=== PATIENT | female | born 1960 | race Caucasian/White ===

== ENCOUNTER 2023-04-22 20:07 | Inpatient (IN) | payer SELFPAY ==
[2023-04-22 20:47] LABS: #Basophils 0.1 thou/uL (0.0-0.2); #Eosinphils 0.3 thou/uL (0.0-0.7); #Monocytes 0.6 thou/uL (0.11-0.59); #Neutrophils 12.2 thou/uL (1.40-6.50); %Basophils 0.4 % (0.0-1.0); %Eosinophils 2.1 % (0.0-10.0); %Lymphocytes 5.7 % (21.0-51.0); %Monocytes 4.2 % (0.0-10.0); %Neutrophils 87.2 % (42.0-75.0); Hematocrit 22.3 % (36.0-47.0); Mean Corpuscular HGB CONC 26.9 g/dL (32.0-36.0); Mean Corpuscular Hemoglobin 19.2 pg (27.0-31.0); Mean Corpuscular Volume 71.2 fl (78.0-98.0); Mean Platelet Volume 12.2 fL (7.4-10.4); Platelet Count 365 10x3/uL (130-400); RBC Distribution Width 20.6 % (11.5-14.5); Red Blood Cell (RBC) Count 3.13 mill/uL (4.20-5.40)
[2023-04-22 21:00] LABS: PTT 23.7 sec (22.9-36.1)
[2023-04-22 21:07] LABS: INR-International Normal Ratio 0.9; Prothrombin Time 12.8 sec (12.0-14.7)
[2023-04-22 21:14] LABS: Troponin I 0.025 ng/mL (< 0.028)
[2023-04-22 21:17] LABS: ALT (SGPT) 16 U/L (8-55); AST (SGOT) 10 U/L (5-34); Alkaline Phosphatase 89 U/L (40-110); Anion Gap 14 mmol/L (10-20); BUN (Urea Nitrogen) 38 mg/dL (9.8-20.1); Bilirubin, Total 0.3 mg/dL (0.2-1.2); Calc. Creatinine Clearance 0 mL/min (70-130); Carbon Dioxide 27 mmol/L (23-31); Chloride 105 mmol/L (98-107); Estimated GFR 29; Glucose 188 mg/dL (80-115); Potassium 4.3 mmol/L (3.5-5.1); Sodium 142 mmol/L (136-145)
[2023-04-22 21:19] LABS: Anisocytosis MODERATE=16-30 cells HPF (0-5); CellaVision Operator ID lab.sh2; Hypochromia SLIGHT = 6-15 cells HPF (0-5); Microcytosis SLIGHT = 6-15 cells HPF (0-5); Ovalocytes MODERATE= 6-15 cells HPF (0-1); Platelet Adequacy Comment Platelets Normal; Polychromasia MODERATE = 3-4 cells HPF (0-2); Tear Drops SLIGHT = 2-5 cells HPF (0-1)
[2023-04-22] MEDS ORDERED: Ondansetron PF 4 MG/2 ML Vial IVP PRN (22:00)
[2023-04-22] MEDS ORDERED: Acetaminophen 325 MG TAB PO PRN (22:00)
[2023-04-22] MEDS ORDERED: Ondansetron ODT 4 MG TAB SL PRN (22:00)
[2023-04-22] MEDS ORDERED: Furosemide 40 MG/4 ML VIAL ONE (22:01)
[2023-04-22] MEDS ORDERED: Acetaminophen 650 MG Suppository PR PRN (23:34)
[2023-04-22] MEDS ORDERED: Electrolyte Replacement Protocol 1 EACH FS SCH (23:45)
[2023-04-22] MEDS ORDERED: Pantoprazole 40 MG VIAL IVP SCH (23:59)
[2023-04-23 00:28] VITALS: BMI 44.1
[2023-04-23 00:37] LABS: Iron 24 ug/dL (50-170); Iron Binding Capacity, Total 499 mcg/dL (265-497); Magnesium 2.3 mg/dL (1.6-2.6)
[2023-04-23] MEDS ORDERED: HumaLOG 300 UNITS/3 ML VIAL SC PRN (01:05)
[2023-04-23] MEDS ORDERED: Dextrose 5% in Water 1,000 ML IV PRN (01:05)
[2023-04-23] MEDS ORDERED: Glucagon 1 MG/ML KIT IM PRN (01:05)
[2023-04-23] MEDS ORDERED: Dextrose 50% Abboject 50 ML SYRINGE SLOW IVP PRN (01:05)
[2023-04-23] MEDS ORDERED: hydrALAZINE 20 MG/ML VIAL SLOW IVP PRN (01:08)
[2023-04-23] MEDS ORDERED: Ipratropium/Albuterol 3 ML NEB NEB PRN (01:16)
[2023-04-23] MEDS ORDERED: hydrALAZINE 25 MG TAB PO SCH ×2 (01:30→09:30)
[2023-04-23] MEDS: Ipratropium/Albuterol 3 ML NEB NEB SCH ×5 (01:34→19:54)
[2023-04-23] MEDS ORDERED: Carvedilol 3.125 MG TAB PO SCH (01:45)
[2023-04-23] MEDS: Carvedilol 3.125 MG TAB PO SCH ×3 (02:12→20:09)
[2023-04-23 02:15] LABS: Anion Gap 15 mmol/L (10-20); BUN (Urea Nitrogen) 36 mg/dL (9.8-20.1); Calc. Creatinine Clearance 66 mL/min (70-130); Carbon Dioxide 28 mmol/L (23-31); Chloride 105 mmol/L (98-107); Estimated GFR 34; Glucose 104 mg/dL (80-115); Magnesium 2.2 mg/dL (1.6-2.6); Potassium 3.9 mmol/L (3.5-5.1); Sodium 144 mmol/L (136-145)
[2023-04-23 02:18] LABS: Troponin I 0.142 ng/mL (< 0.028)
[2023-04-23 02:54] LABS: Bacteria/HPF 4+ HPF (None Seen); Bilirubin Negative (Negative); Blood, Urine Trace (Negative); Clarity Clear (Clear); Glucose, Urine (Dipstick) Normal (Negative); Ketone, Urine Negative (Negative); Leukocyte 500 Leu/uL (Negative); Nitrite 1+ (Negative); Protein, Urine (Dipstick) 70 mg/dL (Neg-Trace); Squamous Epithelial 0-3 HPF (0-3); Urobilinogen Normal mg/dL (Less than 2); WBC/HPF 21-50 HPF (0-3)
[2023-04-23 06:26] LABS: #Basophils 0.1 thou/uL (0.0-0.2); #Eosinphils 0.3 thou/uL (0.0-0.7); #Monocytes 0.6 thou/uL (0.11-0.59); #Neutrophils 8.8 thou/uL (1.40-6.50); %Basophils 0.5 % (0.0-1.0); %Eosinophils 2.7 % (0.0-10.0); %Lymphocytes 11.6 % (21.0-51.0); %Monocytes 5.5 % (0.0-10.0); %Neutrophils 79.3 % (42.0-75.0); Hematocrit 23.1 % (36.0-47.0); Hemoglobin 6.5 g/dL (12.0-16.0); Mean Corpuscular HGB CONC 28.1 g/dL (32.0-36.0); Mean Corpuscular Hemoglobin 20.8 pg (27.0-31.0); Mean Platelet Volume 11.9 fL (7.4-10.4); Platelet Count 315 10x3/uL (130-400); RBC Distribution Width 22.3 % (11.5-14.5); Red Blood Cell (RBC) Count 3.13 mill/uL (4.20-5.40)
[2023-04-23 06:28] LABS: Mean Corpuscular Volume 73.8 fl (78.0-98.0)
[2023-04-23 06:51] LABS: Anion Gap 13 mmol/L (10-20); BUN (Urea Nitrogen) 35 mg/dL (9.8-20.1); Calc. Creatinine Clearance 65 mL/min (70-130); Calcium 8.9 mg/dL (7.8-10.44); Carbon Dioxide 29 mmol/L (23-31); Chloride 106 mmol/L (98-107); Estimated GFR 34; Glucose 98 mg/dL (80-115); Magnesium 2.2 mg/dL (1.6-2.6); Potassium 3.8 mmol/L (3.5-5.1); Sodium 144 mmol/L (136-145)
[2023-04-23] MEDS ORDERED: Furosemide 40 MG/4 ML VIAL SLOW IVP SCH (09:00)
[2023-04-23] MEDS: Pantoprazole 40 MG VIAL IVP SCH (09:01)
[2023-04-23 10:18] LABS: Hematocrit 23.6 % (36.0-47.0); Hemoglobin 6.5 g/dL (12.0-16.0)
[2023-04-23] MEDS ORDERED: busPIRone HCl 10 MG TAB PO SCH (13:15)
[2023-04-23] MEDS: Iron, Sodium Ferric Gluconate 250 MG in Sodium Chloride 0.9% 250 ML 250 ML IVPB SCH (13:27)
[2023-04-23] MEDS: hydrALAZINE 25 MG TAB PO SCH ×2 (15:45→20:09)
[2023-04-23] MEDS: Furosemide 40 MG/4 ML VIAL SLOW IVP SCH (15:46)
[2023-04-23 16:00] LABS: Hemoglobin 7.5 g/dL (12.0-16.0)
[2023-04-23] MEDS ORDERED: Ipratropium Bromide 2.5 ml Neb NEB SCH (19:00)
[2023-04-23] MEDS: Mometasone 200 MCG/Formoterol 5 MCG 120 PUFF INHALER INH SCH (19:55)
[2023-04-23] MEDS: Atorvastatin Calcium 20 MG TAB PO SCH (20:09)
[2023-04-23] MEDS: Montelukast Sodium 10 mg Tablet PO SCH (20:09)
[2023-04-23] MEDS: busPIRone HCl 10 MG TAB PO SCH (20:14)
[2023-04-23] MEDS ORDERED: ALPRAZolam 0.5 MG TAB PO SCH (21:00)
[2023-04-23 21:59] LABS: Hematocrit 27.7 % (36.0-47.0); Hemoglobin 7.9 g/dL (12.0-16.0)
[2023-04-24] MEDS: Furosemide 40 MG/4 ML VIAL SLOW IVP SCH ×2 (05:23→13:57)
[2023-04-24] MEDS: Mometasone 200 MCG/Formoterol 5 MCG 120 PUFF INHALER INH SCH ×2 (06:44→18:53)
[2023-04-24] MEDS: Ipratropium/Albuterol 3 ML NEB NEB SCH ×3 (06:45→18:50)
[2023-04-24] MEDS ORDERED: Ipratropium Bromide 2.5 ml Neb NEB SCH (07:00)
[2023-04-24] MEDS: Pantoprazole 40 MG VIAL IVP SCH (08:28)
[2023-04-24] MEDS: hydrALAZINE 25 MG TAB PO SCH ×3 (08:28→20:27)
[2023-04-24] MEDS: Carvedilol 3.125 MG TAB PO SCH ×2 (08:28→20:29)
[2023-04-24] MEDS: busPIRone HCl 10 MG TAB PO SCH ×2 (08:29→20:33)
[2023-04-24] MEDS: Iron, Sodium Ferric Gluconate 250 MG in Sodium Chloride 0.9% 250 ML 250 ML IVPB SCH (10:59)
[2023-04-24] MEDS ORDERED: GoLYTELY 4,000 ml Bottle PO SCH (17:00)
[2023-04-24] MEDS: Atorvastatin Calcium 20 MG TAB PO SCH (20:28)
[2023-04-24] MEDS: Montelukast Sodium 10 mg Tablet PO SCH (20:29)
[2023-04-25] MEDS: Furosemide 40 MG/4 ML VIAL SLOW IVP SCH ×2 (06:54→15:20)
[2023-04-25] MEDS: Mometasone 200 MCG/Formoterol 5 MCG 120 PUFF INHALER INH SCH ×2 (06:58→18:47)
[2023-04-25] MEDS: Ipratropium/Albuterol 3 ML NEB NEB SCH ×3 (06:59→18:36)
[2023-04-25 08:03] LABS: #Basophils 0.1 thou/uL (0.0-0.2); #Eosinphils 0.5 thou/uL (0.0-0.7); #Monocytes 0.7 thou/uL (0.11-0.59); %Basophils 0.5 % (0.0-1.0); %Eosinophils 4.1 % (0.0-10.0); %Lymphocytes 10.6 % (21.0-51.0); %Monocytes 6.4 % (0.0-10.0); %Neutrophils 77.5 % (42.0-75.0); Hematocrit 26.7 % (36.0-47.0); Hemoglobin 7.5 g/dL (12.0-16.0); Mean Corpuscular HGB CONC 28.1 g/dL (32.0-36.0); Mean Corpuscular Hemoglobin 20.6 pg (27.0-31.0); Mean Corpuscular Volume 73.4 fl (78.0-98.0); Mean Platelet Volume 11.5 fL (7.4-10.4); Platelet Count 328 10x3/uL (130-400); RBC Distribution Width 22.3 % (11.5-14.5); Red Blood Cell (RBC) Count 3.64 mill/uL (4.20-5.40); White Blood Cell (WBC) Count 11.7 10x3/uL (4.8-10.8)
[2023-04-25 08:28] LABS: Anion Gap 15 mmol/L (10-20); BUN (Urea Nitrogen) 23 mg/dL (9.8-20.1); Calc. Creatinine Clearance 70 mL/min (70-130); Calcium 8.9 mg/dL (7.8-10.44); Carbon Dioxide 32 mmol/L (23-31); Chloride 98 mmol/L (98-107); Estimated GFR 37; Glucose 127 mg/dL (80-115); Potassium 3.4 mmol/L (3.5-5.1); Sodium 142 mmol/L (136-145)
[2023-04-25] MEDS ORDERED: Potassium Chloride 20 MEQ TAB PO SCH ×2 (09:00→15:00)
[2023-04-25] MEDS: busPIRone HCl 10 MG TAB PO SCH ×2 (09:09→20:15)
[2023-04-25] MEDS: Carvedilol 3.125 MG TAB PO SCH ×2 (09:09→20:15)
[2023-04-25] MEDS: hydrALAZINE 25 MG TAB PO SCH ×3 (09:09→20:14)
[2023-04-25 09:20] LABS: CellaVision Operator ID LAB.GE; Elliptocytes SLIGHT = 2-5 cells HPF (0-1); Hypochromia SLIGHT = 6-15 cells HPF (0-5); Microcytosis MODERATE=15-30 cells HPF (0-5); Ovalocytes SLIGHT = 2-5 cells HPF (0-1); Platelet Adequacy Comment Platelets Normal; Polychromasia MODERATE = 3-4 cells HPF (0-2)
[2023-04-25] MEDS ORDERED: Lidocaine 1% PF 5 ML VIAL ONE ×2 (10:13→11:05)
[2023-04-25] MEDS ORDERED: PROPOFOL 20 ML ONE (10:16)
[2023-04-25] MEDS ORDERED: Ketamine In 0.9 % NaCl 50 MG/5 ML SYRINGE ONE ×2 (11:02→11:18)
[2023-04-25] MEDS ORDERED: Midazolam HCl 2 mg/2 ml Vial ONE ×2 (11:04→11:35)
[2023-04-25] MEDS ORDERED: PROPOFOL 200 MG/20 ML VIAL ONE (11:05)
[2023-04-25] MEDS ORDERED: Glycopyrrolate 0.2 MG/ML 5 ML SYRINGE ONE ×2 (11:05→11:06)
[2023-04-25] MEDS: Pantoprazole 40 MG VIAL IVP SCH (14:44)
[2023-04-25] MEDS: Iron, Sodium Ferric Gluconate 250 MG in Sodium Chloride 0.9% 250 ML 250 ML IVPB SCH (16:12)
[2023-04-25] MEDS: GoLYTELY 4,000 ml Bottle PO SCH (17:39)
[2023-04-25] MEDS: Atorvastatin Calcium 20 MG TAB PO SCH (20:14)
[2023-04-25] MEDS: Montelukast Sodium 10 mg Tablet PO SCH (20:14)
[2023-04-26] MEDS: GoLYTELY 4,000 ml Bottle PO SCH (02:35)
[2023-04-26 04:24] LABS: #Eosinphils 0.5 thou/uL (0.0-0.7); #Monocytes 0.7 thou/uL (0.11-0.59); #Neutrophils 9.3 thou/uL (1.40-6.50); %Basophils 0.3 % (0.0-1.0); %Eosinophils 4.3 % (0.0-10.0); %Lymphocytes 10.9 % (21.0-51.0); %Monocytes 5.9 % (0.0-10.0); %Neutrophils 77.8 % (42.0-75.0); Hematocrit 26.9 % (36.0-47.0); Hemoglobin 7.6 g/dL (12.0-16.0); Mean Corpuscular HGB CONC 28.3 g/dL (32.0-36.0); Mean Corpuscular Hemoglobin 21.2 pg (27.0-31.0); Mean Corpuscular Volume 74.9 fl (78.0-98.0); Mean Platelet Volume 12.1 fL (7.4-10.4); Platelet Count 345 10x3/uL (130-400); RBC Distribution Width 23.4 % (11.5-14.5); Red Blood Cell (RBC) Count 3.59 mill/uL (4.20-5.40)
[2023-04-26 04:50] LABS: Anion Gap 14 mmol/L (10-20); BUN (Urea Nitrogen) 19 mg/dL (9.8-20.1); Calc. Creatinine Clearance 75 mL/min (70-130); Calcium 8.8 mg/dL (7.8-10.44); Carbon Dioxide 32 mmol/L (23-31); Chloride 95 mmol/L (98-107); Estimated GFR 41; Glucose 121 mg/dL (80-115); Potassium 3.4 mmol/L (3.5-5.1); Sodium 138 mmol/L (136-145)
[2023-04-26] MEDS: Furosemide 40 MG/4 ML VIAL SLOW IVP SCH ×2 (05:38→13:44)
[2023-04-26] MEDS: Mometasone 200 MCG/Formoterol 5 MCG 120 PUFF INHALER INH SCH ×2 (07:21→18:22)
[2023-04-26] MEDS: Ipratropium/Albuterol 3 ML NEB NEB SCH ×3 (07:21→18:22)
[2023-04-26] MEDS ORDERED: Potassium Chloride 20 MEQ TAB PO SCH (08:00)
[2023-04-26] MEDS ORDERED: PROPOFOL 40 ML ONE (09:06)
[2023-04-26] MEDS ORDERED: Lidocaine 1% PF 5 ML VIAL ONE ×2 (09:06→09:11)
[2023-04-26] MEDS ORDERED: Glycopyrrolate 0.2 MG/ML 5 ML SYRINGE ONE ×2 (09:11→09:26)
[2023-04-26] MEDS ORDERED: PROPOFOL 200 MG/20 ML VIAL ONE (09:11)
[2023-04-26] MEDS ORDERED: ePHEDrine Sulfate 50 MG/10 ML VIAL ONE (09:24)
[2023-04-26] MEDS: Carvedilol 6.25 MG TAB PO SCH ×2 (10:43→17:25)
[2023-04-26] MEDS: busPIRone HCl 10 MG TAB PO SCH ×2 (10:44→21:04)
[2023-04-26] MEDS: Lisinopril 5 MG TAB PO SCH ×2 (10:44→21:04)
[2023-04-26] MEDS: hydrALAZINE 25 MG TAB PO SCH ×3 (10:44→21:04)
[2023-04-26] MEDS: Iron, Sodium Ferric Gluconate 250 MG in Sodium Chloride 0.9% 250 ML 250 ML IVPB SCH (11:44)
[2023-04-26] MEDS: Atorvastatin Calcium 20 MG TAB PO SCH (21:04)
[2023-04-26] MEDS: Montelukast Sodium 10 mg Tablet PO SCH (21:04)
[2023-04-27] MEDS: ALPRAZolam 0.5 MG TAB PO PRN (00:13)
[2023-04-27] MEDS ORDERED: predniSONE 20 MG TAB PO SCH (01:30)
[2023-04-27] MEDS: Furosemide 40 MG/4 ML VIAL SLOW IVP SCH (06:41)
[2023-04-27] MEDS: Ipratropium/Albuterol 3 ML NEB NEB SCH ×3 (07:07→18:26)
[2023-04-27] MEDS: Mometasone 200 MCG/Formoterol 5 MCG 120 PUFF INHALER INH SCH ×2 (07:08→18:33)
[2023-04-27] MEDS: Lisinopril 5 MG TAB PO SCH ×2 (09:24→22:29)
[2023-04-27] MEDS: Carvedilol 6.25 MG TAB PO SCH ×2 (09:24→17:23)
[2023-04-27] MEDS: busPIRone HCl 10 MG TAB PO SCH ×2 (09:25→22:30)
[2023-04-27] MEDS: hydrALAZINE 25 MG TAB PO SCH ×3 (09:25→22:29)
[2023-04-27] MEDS: predniSONE 20 MG TAB PO SCH ×2 (09:30→14:08)
[2023-04-27] MEDS ORDERED: Potassium Chloride 20 MEQ TAB PO SCH (11:45)
[2023-04-27] MEDS: HumaLOG 300 UNITS/3 ML VIAL SC PRN ×2 (11:47→17:44)
[2023-04-27] MEDS ORDERED: diphenhydrAMINE 25 MG CAP PO SCH (14:00)
[2023-04-27] MEDS: Furosemide 40 MG TAB PO SCH (14:01)
[2023-04-27] MEDS: Montelukast Sodium 10 mg Tablet PO SCH (22:29)
[2023-04-27] MEDS: Atorvastatin Calcium 20 MG TAB PO SCH (22:30)
[2023-04-27] MEDS: Insulin Glargine 30 UNITS/0.3 ML VIAL SC SCH (22:30)
[2023-04-28] MEDS: ALPRAZolam 0.5 MG TAB PO PRN (00:52)
[2023-04-28] MEDS: HumaLOG 300 UNITS/3 ML VIAL SC PRN (05:58)
[2023-04-28] MEDS: Ipratropium/Albuterol 3 ML NEB NEB SCH ×2 (06:52→13:33)
[2023-04-28] MEDS: Mometasone 200 MCG/Formoterol 5 MCG 120 PUFF INHALER INH SCH (06:53)
[2023-04-28 08:16] VITALS: TEMP 97.5
[2023-04-28] MEDS: Lisinopril 5 MG TAB PO SCH (09:22)
[2023-04-28] MEDS: busPIRone HCl 10 MG TAB PO SCH (09:22)
[2023-04-28] MEDS: Carvedilol 6.25 MG TAB PO SCH ×2 (09:23→17:28)
[2023-04-28] MEDS: hydrALAZINE 25 MG TAB PO SCH ×2 (09:23→15:49)
[2023-04-28] MEDS: Furosemide 40 MG TAB PO SCH ×2 (09:23→15:48)
[2023-04-28] MEDS: Insulin Glargine 30 UNITS/0.3 ML VIAL SC SCH (09:24)
[2023-04-28] MEDS ORDERED: Electrolyte Replacement Protocol FS PRN (13:00)
[2023-04-28 15:24] VITALS: BP 187/75
== END 2023-04-28 19:00 | disposition home or self-care (01) | DRG 811 ==
LOC: ERS 20:07 → T4-B 21:40 → 2NO 04-23 02:07
PROVIDERS: ADMIT Student in an Organized Health Care Education/Training Program; ATTEND Internal Medicine
PROC: 30233N1 Transfusion of Nonautologous Red Blood Cells into Peripheral Vein, Percutaneous Approach (ICD-10-PCS; 2023-04-22)
PROC: 0DB98ZX Excision of Duodenum, Via Natural or Artificial Opening Endoscopic, Diagnostic (ICD-10-PCS; principal; 2023-04-25)
PROC: 0DJD8ZZ Inspection of Lower Intestinal Tract, Via Natural or Artificial Opening Endoscopic (ICD-10-PCS; 2023-04-25)
PROC: 0DJD8ZZ Inspection of Lower Intestinal Tract, Via Natural or Artificial Opening Endoscopic (ICD-10-PCS; 2023-04-26)
DX: D50.9 Iron deficiency anemia, unspecified (principal); I50.33 Acute on chronic diastolic (congestive) heart failure; J96.21 Acute and chronic respiratory failure with hypoxia; I13.0 Hypertensive heart and chronic kidney disease with heart failure and stage 1 through stage 4 chronic kidney disease, or unspecified chronic kidney disease; N17.9 Acute kidney failure, unspecified; R65.10 Systemic inflammatory response syndrome (SIRS) of non-infectious origin without acute organ dysfunction; Z68.41 Body mass index [BMI] 40.0-44.9, adult; E11.22 Type 2 diabetes mellitus with diabetic chronic kidney disease; N18.30 Chronic kidney disease, stage 3 unspecified; K64.4 Residual hemorrhoidal skin tags; K64.9 Unspecified hemorrhoids; J44.9 Chronic obstructive pulmonary disease, unspecified; K22.70 Barrett's esophagus without dysplasia; E78.5 Hyperlipidemia, unspecified; E66.01 Morbid (severe) obesity due to excess calories; Z87.891 Personal history of nicotine dependence; Z79.899 Other long term (current) drug therapy; Z99.81 Dependence on supplemental oxygen; Z79.4 Long term (current) use of insulin; Z88.5 Allergy status to narcotic agent; Z88.8 Allergy status to other drugs, medicaments and biological substances; Z88.6 Allergy status to analgesic agent; Z91.041 Radiographic dye allergy status; Z91.040 Latex allergy status
CPT/HCPCS: 36415; 36416; 36430; 71045; 71260; 74177; 80048; 80053; 81001; 82728; 83540; 83550; 83735; 83880; 84443; 84484; 85025; 85610; 85730; 86850; 86900; 86901; 88305; 93005; 93306; 93798; 94640; 94664; 96374; C9113; J1815; J1940; J2250; J2704; J2916; J3490; J7050; J7512; J7620; P9016

== ENCOUNTER 2023-05-04 09:42 | Inpatient (IN) | payer MEDICARE, SELFPAY ==
[2023-05-04] MEDS ORDERED: Ipratropium/Albuterol 3 ML NEB ONE (10:01)
[2023-05-04 10:15] LABS: #Basophils 0.1 thou/uL (0.0-0.2); #Eosinphils 0.2 thou/uL (0.0-0.7); #Monocytes 0.8 thou/uL (0.11-0.59); #Neutrophils 12.1 thou/uL (1.40-6.50); %Basophils 0.4 % (0.0-1.0); %Eosinophils 1.1 % (0.0-10.0); %Monocytes 5.9 % (0.0-10.0); %Neutrophils 86.7 % (42.0-75.0); Hematocrit 28.8 % (36.0-47.0); Hemoglobin 7.9 g/dL (12.0-16.0); Mean Corpuscular HGB CONC 27.4 g/dL (32.0-36.0); Mean Corpuscular Hemoglobin 21.6 pg (27.0-31.0); Mean Corpuscular Volume 78.7 fl (78.0-98.0); Mean Platelet Volume 12.4 fL (7.4-10.4); Platelet Count 410 10x3/uL (130-400); RBC Distribution Width 26.6 % (11.5-14.5); Red Blood Cell (RBC) Count 3.66 mill/uL (4.20-5.40)
[2023-05-04 10:37] LABS: ALT (SGPT) 14 U/L (8-55); AST (SGOT) 10 U/L (5-34); Albumin 3.5 g/dL (3.4-4.8); Alkaline Phosphatase 80 U/L (40-110); Anion Gap 15 mmol/L (10-20); BUN (Urea Nitrogen) 29 mg/dL (9.8-20.1); Bilirubin, Total 0.4 mg/dL (0.2-1.2); Calc. Creatinine Clearance 0 mL/min (70-130); Carbon Dioxide 31 mmol/L (23-31); Chloride 98 mmol/L (98-107); Estimated GFR 39; Globulin 3.2 g/dL (2.4-3.5); Glucose 121 mg/dL (80-115); Magnesium 2.2 mg/dL (1.6-2.6); Potassium 3.6 mmol/L (3.5-5.1); Protein, Total 6.7 g/dL (5.8-8.1); Sodium 140 mmol/L (136-145)
[2023-05-04 10:40] LABS: Troponin I 0.032 ng/mL (< 0.028)
[2023-05-04 10:51] LABS: Bacteria/HPF 2+ HPF (None Seen); Bilirubin Negative (Negative); Blood, Urine 1+ (Negative); CAUTI Indications for Culture Dysuria,urgency,freq; Clarity Turbid (Clear); Glucose, Urine (Dipstick) Normal (Negative); Ketone, Urine Negative (Negative); Leukocyte 500 Leu/uL (Negative); Nitrite Negative (Negative); Protein, Urine (Dipstick) 300 mg/dL (Neg-Trace); RBC/HPF 21-50 HPF (0-3); Specific Gravity, Urine 1.011 (1.002-1.036); Squamous Epithelial 0-3 HPF (0-3); Urobilinogen Normal mg/dL (Less than 2); WBC/HPF Greater than 50 HPF (0-3)
[2023-05-04 10:54] LABS: Urine Culture Reflex Yes Yes
[2023-05-04] MEDS ORDERED: Magnesium 2 GM/50 ML BAG (IN WATER) ONE (11:17)
[2023-05-04] MEDS ORDERED: cefTRIAXone (ROCEPHIN) 2 GM VIAL ONE (11:17)
[2023-05-04] MEDS ORDERED: Sodium Chloride 0.9% 100 ML ONE (11:17)
[2023-05-04 11:18] LABS: CellaVision Operator ID LAB.NR; Elliptocytes SLIGHT = 2-5 cells HPF (0-1); Hypochromia MODERATE=16-30 cells HPF (0-5); Macrocytosis SLIGHT = 6-15 cells HPF (0-5); Microcytosis SLIGHT = 6-15 cells HPF (0-5); Platelet Adequacy Comment Platelets Increased; Polychromasia SLIGHT = 2-3 cells HPF (0-2)
[2023-05-04 12:48] LABS: Actual Bicarbonate (HCO3v) 30.8 mEq/L (22-28); Analyzer IN Cardio ER; Base Excess 2.7 mEq/L (-2.0 to +3.0); Calcium, Ionized (venous) 1.09 mmol/L (1.16-1.32); Chloride (VBG) 100 mmol/L (98-106); Hematocrit-VBG 24 % (36.0-47.0); Hemoglobin (Hb) 8.1 g/dL (11.7-16.0); Sodium 137 mmol/L (133-146); pH (venous) 7.249 (7.32-7.43)
[2023-05-04 12:59] LABS: SARS-CoV-2 NAA Rapid Test Not Detected (NotDetected)
[2023-05-04] MEDS ORDERED: Heparin 25,000 units/D5W 500 ML ONE (13:58)
[2023-05-04 14:04] LABS: Actual Bicarbonate (HCO3a) 26.4 mEq/L (22-28); Analyzer IN Cardio ER; Base Excess (BEa) -1.7 mEq/L (-2.0 to +3.0); Calcium, Ionized (arterial) 1.15 mmol/L (1.12-1.30); Carboxyhemoglobin (COHb) 1.1 gm% (0.0-3.0); Hematocrit-ABG 25 % (36.0-47.0); Hemoglobin (Hb) 8.6 g/dL (12.0-16.0); O2 Tension (PaO2), arterial 89.7 mmHg (> 80.0); Potassium - ABG Lab 4.09 mmol/L (3.70-5.30); pH, Arterial 7.226 (7.35-7.45)
[2023-05-04 14:09] LABS: Puncture Site Right Brachial
[2023-05-04 14:33] LABS: Prothrombin Time 13.9 sec (12.0-14.7)
[2023-05-04 14:34] LABS: PTT 31.6 sec (22.9-36.1)
[2023-05-04 14:55] LABS: Troponin I 0.032 ng/mL (< 0.028)
[2023-05-04] MEDS ORDERED: Ondansetron PF 4 MG/2 ML Vial IVP PRN ×2 (16:45→16:51)
[2023-05-04] MEDS ORDERED: Acetaminophen 325 MG TAB PO PRN (16:45)
[2023-05-04] MEDS ORDERED: Ondansetron ODT 4 MG TAB SL PRN (16:45)
[2023-05-04] MEDS ORDERED: Dextrose 50% Abboject 50 ML SYRINGE SLOW IVP PRN (16:51)
[2023-05-04] MEDS ORDERED: Glucagon 1 MG/ML KIT IM PRN (16:51)
[2023-05-04] MEDS ORDERED: Dextrose 5% in Water 1,000 ML IV PRN (16:51)
[2023-05-04] MEDS ORDERED: Electrolyte Replacement Protocol 1 EACH IVPB ONE (16:51)
[2023-05-04] MEDS ORDERED: Ipratropium/Albuterol 3 ML NEB NEB PRN (16:51)
[2023-05-04] MEDS ORDERED: Electrolyte Replacement Protocol FS PRN (17:15)
[2023-05-04 17:42] LABS: Hematocrit 28.6 % (36.0-47.0); Hemoglobin 7.6 g/dL (12.0-16.0)
[2023-05-04 17:45] VITALS: BMI 42.8
[2023-05-04] MEDS: Azithromycin 500 MG in Sodium Chloride 0.9% 250 ML 250 ML IVPB SCH (17:52)
[2023-05-04] MEDS: methylPREDNISolone Sod Succ 40 MG VIAL IVP SCH ×2 (17:53→20:06)
[2023-05-04 18:00] LABS: Troponin I 0.018 ng/mL (< 0.028)
[2023-05-04] MEDS ORDERED: methylPREDNISolone Sod Succ 40 MG VIAL IVP SCH (18:00)
[2023-05-04] MEDS ORDERED: Heparin 25,000 units/D5W 500 ML IV SCH (19:00)
[2023-05-04] MEDS ORDERED: Heparin 10,000 UNITS/ 10 ML VIAL SLOW IVP SCH (19:00)
[2023-05-04] MEDS: Ipratropium/Albuterol 3 ML NEB NEB SCH ×2 (19:12→22:41)
[2023-05-04] MEDS: HumaLOG 300 UNITS/3 ML VIAL SC PRN (20:03)
[2023-05-04 21:10] LABS: Hematocrit 26.5 % (36.0-47.0); Hemoglobin 7.1 g/dL (12.0-16.0)
[2023-05-05 04:17] LABS: #Monocytes 0.8 thou/uL (0.11-0.59); #Neutrophils 13.3 thou/uL (1.40-6.50); %Basophils 0.1 % (0.0-1.0); %Lymphocytes 5.7 % (21.0-51.0); %Monocytes 5.1 % (0.0-10.0); %Neutrophils 87.8 % (42.0-75.0); Hematocrit 28.2 % (36.0-47.0); Hemoglobin 7.6 g/dL (12.0-16.0); Mean Corpuscular Hemoglobin 22.2 pg (27.0-31.0); Mean Platelet Volume 12.5 fL (7.4-10.4); Platelet Count 365 10x3/uL (130-400); RBC Distribution Width 26.4 % (11.5-14.5); Red Blood Cell (RBC) Count 3.43 mill/uL (4.20-5.40); White Blood Cell (WBC) Count 15.2 10x3/uL (4.8-10.8)
[2023-05-05 04:18] LABS: Mean Corpuscular Volume 82.2 fl (78.0-98.0)
[2023-05-05 04:47] LABS: Anion Gap 16 mmol/L (10-20); BUN (Urea Nitrogen) 38 mg/dL (9.8-20.1); Calc. Creatinine Clearance 64 mL/min (70-130); Calcium 8.8 mg/dL (7.8-10.44); Carbon Dioxide 27 mmol/L (23-31); Chloride 98 mmol/L (98-107); Estimated GFR 34; Glucose 208 mg/dL (80-115); Potassium 4.3 mmol/L (3.5-5.1); Sodium 137 mmol/L (136-145)
[2023-05-05] MEDS: Furosemide 40 MG/4 ML VIAL SLOW IVP SCH ×2 (05:32→13:29)
[2023-05-05] MEDS: HumaLOG 300 UNITS/3 ML VIAL SC PRN ×3 (05:37→22:04)
[2023-05-05] MEDS: Heparin 25,000 units/D5W 500 ML IV SCH ×2 (05:43→16:38)
[2023-05-05] MEDS ORDERED: Heparin 10,000 UNITS/ 10 ML VIAL SLOW IVP SCH (05:45)
[2023-05-05] MEDS: Ipratropium/Albuterol 3 ML NEB NEB SCH ×3 (08:02→18:28)
[2023-05-05] MEDS ORDERED: Pantoprazole 40 MG VIAL IVP SCH (09:00)
[2023-05-05] MEDS: methylPREDNISolone Sod Succ 40 MG VIAL IVP SCH (09:54)
[2023-05-05] MEDS ORDERED: hydrALAZINE 25 MG TAB PO SCH (11:50)
[2023-05-05] MEDS ORDERED: Isosorbide Mononitrate 30 MG ER.TAB PO SCH (11:50)
[2023-05-05] MEDS ORDERED: Lisinopril 5 MG TAB PO SCH (11:50)
[2023-05-05] MEDS: cefTRIAXone\\ROCEPHIN 1 GM in Sodium Chloride 0.9% 100 ML IVPB SCH (11:58)
[2023-05-05] MEDS ORDERED: Magnesium Citrate 300 ML BOT PO SCH (13:45)
[2023-05-05] MEDS: hydrALAZINE 25 MG TAB PO SCH ×2 (16:26→22:03)
[2023-05-05] MEDS: Ferrous Sulfate 325 MG TAB PO SCH (16:26)
[2023-05-05] MEDS: Bisacodyl 5 MG TAB PO PRN (16:32)
[2023-05-05] MEDS: Azithromycin 500 MG in Sodium Chloride 0.9% 250 ML 250 ML IVPB SCH (17:16)
[2023-05-05] MEDS: Atorvastatin Calcium 20 MG TAB PO SCH (19:13)
[2023-05-05] MEDS: Montelukast Sodium 10 mg Tablet PO SCH (19:13)
[2023-05-05] MEDS: busPIRone HCl 10 MG TAB PO SCH (19:14)
[2023-05-05] MEDS: ALPRAZolam 0.5 MG TAB PO SCH (19:14)
[2023-05-05] MEDS ORDERED: Non-Formulary Item 1 EACH (Ferrous Sulfate [Ferrous Sulfate] 325 MG Tab) PO SCH (21:00)
[2023-05-05] MEDS: Isosorbide Mononitrate 30 MG ER.TAB PO SCH (22:03)
[2023-05-06] MEDS: Ipratropium/Albuterol 3 ML NEB NEB SCH ×4 (02:08→18:23)
[2023-05-06] MEDS: Heparin 25,000 units/D5W 500 ML IV SCH (02:49)
[2023-05-06 04:18] LABS: #Monocytes 1.2 thou/uL (0.11-0.59); #Neutrophils 12.7 thou/uL (1.40-6.50); %Basophils 0.2 % (0.0-1.0); %Eosinophils 0.2 % (0.0-10.0); %Lymphocytes 11.6 % (21.0-51.0); %Monocytes 7.3 % (0.0-10.0); %Neutrophils 78.2 % (42.0-75.0); Hematocrit 26.5 % (36.0-47.0); Hemoglobin 7.4 g/dL (12.0-16.0); Mean Corpuscular HGB CONC 27.9 g/dL (32.0-36.0); Mean Corpuscular Hemoglobin 22.2 pg (27.0-31.0); Mean Corpuscular Volume 79.6 fl (78.0-98.0); Mean Platelet Volume 12.1 fL (7.4-10.4); Platelet Count 467 10x3/uL (130-400); RBC Distribution Width 26.7 % (11.5-14.5); Red Blood Cell (RBC) Count 3.33 mill/uL (4.20-5.40); White Blood Cell (WBC) Count 16.2 10x3/uL (4.8-10.8)
[2023-05-06 04:37] LABS: Anion Gap 14 mmol/L (10-20); BUN (Urea Nitrogen) 47 mg/dL (9.8-20.1); Calc. Creatinine Clearance 62 mL/min (70-130); Calcium 8.4 mg/dL (7.8-10.44); Carbon Dioxide 29 mmol/L (23-31); Chloride 97 mmol/L (98-107); Estimated GFR 32; Glucose 203 mg/dL (80-115); Potassium 3.8 mmol/L (3.5-5.1); Sodium 136 mmol/L (136-145)
[2023-05-06 06:06] LABS: Anisocytosis MODERATE=16-30 cells HPF (0-5); CellaVision Operator ID lab.sh2; Hypochromia SLIGHT = 6-15 cells HPF (0-5); Macrocytosis SLIGHT = 6-15 cells HPF (0-5); Ovalocytes MODERATE= 6-15 cells HPF (0-1); Platelet Adequacy Comment Platelets Increased; Poikilocytosis SLIGHT = 6-15 cells HPF (0-5); Polychromasia MODERATE = 3-4 cells HPF (0-2); Target Cells SLIGHT = 2-5 cells HPF (0-1)
[2023-05-06] MEDS: Furosemide 40 MG/4 ML VIAL SLOW IVP SCH ×2 (06:18→13:13)
[2023-05-06] MEDS: HumaLOG 300 UNITS/3 ML VIAL SC PRN ×4 (06:21→20:24)
[2023-05-06 06:33] LABS: PTT Greater than 250.0 sec (22.9-36.1)
[2023-05-06] MEDS: hydrALAZINE 25 MG TAB PO SCH ×3 (09:20→20:13)
[2023-05-06] MEDS: Isosorbide Mononitrate 30 MG ER.TAB PO SCH ×2 (09:20→20:13)
[2023-05-06] MEDS: ALPRAZolam 0.5 MG TAB PO SCH ×2 (09:20→20:14)
[2023-05-06] MEDS: Ferrous Sulfate 325 MG TAB PO SCH ×2 (09:20→17:22)
[2023-05-06] MEDS: Insulin Glargine 30 UNITS/0.3 ML VIAL SC SCH (09:21)
[2023-05-06] MEDS: busPIRone HCl 10 MG TAB PO SCH ×2 (09:21→20:15)
[2023-05-06] MEDS: methylPREDNISolone Sod Succ 40 MG VIAL IVP SCH (09:21)
[2023-05-06] MEDS: cefTRIAXone\\ROCEPHIN 1 GM in Sodium Chloride 0.9% 100 ML IVPB SCH (10:21)
[2023-05-06] MEDS ORDERED: Apixaban 5 MG TAB PO SCH (12:45)
[2023-05-06] MEDS: LevoFLOXacin 750 mg/D5W 750 MG in Premix 1 BAG IVPB SCH (17:21)
[2023-05-06] MEDS ORDERED: Dexmedetomidine In 0.9 % NaCl 100 ML IVPB SCH (19:45)
[2023-05-06] MEDS: Montelukast Sodium 10 mg Tablet PO SCH (20:13)
[2023-05-06] MEDS: Bisacodyl 5 MG TAB PO PRN (20:14)
[2023-05-06] MEDS: Apixaban 5 MG TAB PO SCH (20:14)
[2023-05-06] MEDS: Benzonatate 100 MG CAP PO SCH (20:14)
[2023-05-06] MEDS ORDERED: Dexmedetomidine 400 MCG, Admixture Fee 1 EACH in Sodium Chloride 0.9% 96 ML IVPB SCH (20:15)
[2023-05-06] MEDS: Atorvastatin Calcium 20 MG TAB PO SCH (20:15)
[2023-05-07] MEDS: GUAIFENESIN SF SOLN 200 MG/10 ML UDCUP PO PRN ×3 (00:04→17:31)
[2023-05-07] MEDS: Ipratropium/Albuterol 3 ML NEB NEB SCH ×5 (01:43→23:47)
[2023-05-07 03:54] LABS: #Neutrophils 7.5 thou/uL (1.40-6.50); %Basophils 0.1 % (0.0-1.0); %Eosinophils 0.3 % (0.0-10.0); %Monocytes 9.4 % (0.0-10.0); %Neutrophils 74.3 % (42.0-75.0); Hematocrit 23.9 % (36.0-47.0); Hemoglobin 6.5 g/dL (12.0-16.0); Mean Corpuscular HGB CONC 27.2 g/dL (32.0-36.0); Mean Corpuscular Hemoglobin 21.7 pg (27.0-31.0); Mean Corpuscular Volume 79.9 fl (78.0-98.0); Mean Platelet Volume 11.7 fL (7.4-10.4); Platelet Count 431 10x3/uL (130-400); RBC Distribution Width 26.1 % (11.5-14.5); Red Blood Cell (RBC) Count 2.99 mill/uL (4.20-5.40); White Blood Cell (WBC) Count 10.1 10x3/uL (4.8-10.8)
[2023-05-07 04:16] LABS: Anion Gap 16 mmol/L (10-20); BUN (Urea Nitrogen) 44 mg/dL (9.8-20.1); Calc. Creatinine Clearance 67 mL/min (70-130); Calcium 8.1 mg/dL (7.8-10.44); Carbon Dioxide 28 mmol/L (23-31); Chloride 98 mmol/L (98-107); Estimated GFR 35; Glucose 202 mg/dL (80-115); Potassium 4.5 mmol/L (3.5-5.1); Sodium 137 mmol/L (136-145)
[2023-05-07] MEDS: Furosemide 40 MG/4 ML VIAL SLOW IVP SCH ×2 (05:11→12:37)
[2023-05-07] MEDS: HumaLOG 300 UNITS/3 ML VIAL SC PRN ×4 (06:06→21:30)
[2023-05-07] MEDS ORDERED: FLU VACC QS2023-24(6MOS UP)/PF 60 MCG/0.5 ML SYRINGE IM ONE (09:00)
[2023-05-07] MEDS: hydrALAZINE 25 MG TAB PO SCH ×3 (09:41→20:24)
[2023-05-07] MEDS: Benzonatate 100 MG CAP PO SCH ×3 (09:42→20:24)
[2023-05-07] MEDS: busPIRone HCl 10 MG TAB PO SCH ×2 (09:42→20:24)
[2023-05-07] MEDS: Isosorbide Mononitrate 30 MG ER.TAB PO SCH ×2 (09:42→20:24)
[2023-05-07] MEDS: ALPRAZolam 0.5 MG TAB PO SCH ×2 (09:42→20:26)
[2023-05-07] MEDS: Ferrous Sulfate 325 MG TAB PO SCH ×2 (09:42→17:26)
[2023-05-07] MEDS: methylPREDNISolone Sod Succ 40 MG VIAL IVP SCH (09:43)
[2023-05-07] MEDS: Apixaban 5 MG TAB PO SCH (09:43)
[2023-05-07] MEDS: Insulin Glargine 30 UNITS/0.3 ML VIAL SC SCH (09:43)
[2023-05-07] MEDS: Bisacodyl 5 MG TAB PO PRN (12:37)
[2023-05-07] MEDS: Labetalol HCl 100 MG/20 ML VIAL SLOW IVP PRN ×2 (17:26→20:28)
[2023-05-07 19:36] LABS: Hematocrit 28.4 % (36.0-47.0); Hemoglobin 8.2 g/dL (12.0-16.0)
[2023-05-07] MEDS: Atorvastatin Calcium 20 MG TAB PO SCH (20:24)
[2023-05-07] MEDS: Montelukast Sodium 10 mg Tablet PO SCH (20:24)
[2023-05-08] MEDS: Furosemide 40 MG/4 ML VIAL SLOW IVP SCH ×2 (06:00→16:13)
[2023-05-08] MEDS: Ipratropium/Albuterol 3 ML NEB NEB SCH ×4 (07:47→23:27)
[2023-05-08] MEDS: GUAIFENESIN SF SOLN 200 MG/10 ML UDCUP PO PRN ×3 (08:49→20:26)
[2023-05-08] MEDS: hydrALAZINE 25 MG TAB PO SCH ×3 (08:49→20:25)
[2023-05-08] MEDS: Insulin Glargine 30 UNITS/0.3 ML VIAL SC SCH (08:49)
[2023-05-08] MEDS: busPIRone HCl 10 MG TAB PO SCH ×2 (08:50→20:25)
[2023-05-08] MEDS: predniSONE 50 MG TAB PO SCH (08:50)
[2023-05-08] MEDS: ALPRAZolam 0.5 MG TAB PO SCH ×2 (08:50→20:25)
[2023-05-08] MEDS: Ferrous Sulfate 325 MG TAB PO SCH ×2 (08:50→16:15)
[2023-05-08] MEDS: Benzonatate 100 MG CAP PO SCH ×3 (08:50→20:25)
[2023-05-08] MEDS: Isosorbide Mononitrate 30 MG ER.TAB PO SCH ×2 (08:50→20:25)
[2023-05-08] MEDS ORDERED: Carvedilol 6.25 MG TAB PO SCH (09:00)
[2023-05-08 10:24] LABS: #Eosinphils 0.2 thou/uL (0.0-0.7); #Monocytes 0.8 thou/uL (0.11-0.59); #Neutrophils 7.5 thou/uL (1.40-6.50); %Basophils 0.2 % (0.0-1.0); %Eosinophils 1.4 % (0.0-10.0); %Lymphocytes 19.3 % (21.0-51.0); %Monocytes 6.9 % (0.0-10.0); %Neutrophils 68.6 % (42.0-75.0); Hematocrit 27.3 % (36.0-47.0); Hemoglobin 7.8 g/dL (12.0-16.0); Mean Corpuscular HGB CONC 28.6 g/dL (32.0-36.0); Mean Corpuscular Hemoglobin 23.3 pg (27.0-31.0); Mean Corpuscular Volume 81.5 fl (78.0-98.0); Mean Platelet Volume 11.9 fL (7.4-10.4); Platelet Count 441 10x3/uL (130-400); RBC Distribution Width 25.6 % (11.5-14.5); Red Blood Cell (RBC) Count 3.35 mill/uL (4.20-5.40)
[2023-05-08 11:07] LABS: Anion Gap 12 mmol/L (10-20); BUN (Urea Nitrogen) 42 mg/dL (9.8-20.1); Calc. Creatinine Clearance 67 mL/min (70-130); Calcium 8.7 mg/dL (7.8-10.44); Carbon Dioxide 36 mmol/L (23-31); Chloride 95 mmol/L (98-107); Estimated GFR 35; Glucose 226 mg/dL (80-115); Potassium 3.7 mmol/L (3.5-5.1); Sodium 139 mmol/L (136-145)
[2023-05-08 11:24] LABS: Anisocytosis MODERATE=16-30 cells HPF (0-5); CellaVision Operator ID LAB.GE; Elliptocytes SLIGHT = 2-5 cells HPF (0-1); Hypochromia MODERATE=16-30 cells HPF (0-5); Large Platelets 7.8 % (0-5); Ovalocytes SLIGHT = 2-5 cells HPF (0-1); Platelet Adequacy Comment Platelets Increased; Polychromasia MODERATE = 3-4 cells HPF (0-2)
[2023-05-08] MEDS: HumaLOG 300 UNITS/3 ML VIAL SC PRN ×3 (12:35→20:26)
[2023-05-08] MEDS: LevoFLOXacin 750 mg/D5W 750 MG in Premix 1 BAG IVPB SCH (16:14)
[2023-05-08] MEDS: Carvedilol 6.25 MG TAB PO SCH (16:15)
[2023-05-08] MEDS: Bisacodyl 5 MG TAB PO PRN (20:25)
[2023-05-08] MEDS: Atorvastatin Calcium 20 MG TAB PO SCH (20:25)
[2023-05-08] MEDS: Apixaban 5 MG TAB PO SCH (20:25)
[2023-05-08] MEDS: Montelukast Sodium 10 mg Tablet PO SCH (20:25)
[2023-05-09] MEDS: Labetalol HCl 100 MG/20 ML VIAL SLOW IVP PRN ×2 (01:12→18:03)
[2023-05-09] MEDS: Furosemide 40 MG/4 ML VIAL SLOW IVP SCH ×2 (05:15→13:52)
[2023-05-09 05:33] LABS: #Eosinphils 0.1 thou/uL (0.0-0.7); #Monocytes 0.9 thou/uL (0.11-0.59); #Neutrophils 10.3 thou/uL (1.40-6.50); %Basophils 0.1 % (0.0-1.0); %Eosinophils 0.8 % (0.0-10.0); %Lymphocytes 15.7 % (21.0-51.0); %Monocytes 6.2 % (0.0-10.0); %Neutrophils 73.2 % (42.0-75.0); Hematocrit 28.4 % (36.0-47.0); Hemoglobin 8.1 g/dL (12.0-16.0); Mean Corpuscular HGB CONC 28.5 g/dL (32.0-36.0); Mean Corpuscular Hemoglobin 22.6 pg (27.0-31.0); Mean Corpuscular Volume 79.3 fl (78.0-98.0); Mean Platelet Volume 11.7 fL (7.4-10.4); Platelet Count 498 10x3/uL (130-400); Red Blood Cell (RBC) Count 3.58 mill/uL (4.20-5.40); White Blood Cell (WBC) Count 14.1 10x3/uL (4.8-10.8)
[2023-05-09 05:52] LABS: BUN (Urea Nitrogen) 44 mg/dL (9.8-20.1); Calc. Creatinine Clearance 71 mL/min (70-130); Calcium 8.7 mg/dL (7.8-10.44); Estimated GFR 38; Glucose 217 mg/dL (80-115)
[2023-05-09 06:01] LABS: Anion Gap 17 mmol/L (10-20); Carbon Dioxide 32 mmol/L (23-31); Chloride 94 mmol/L (98-107); Potassium 3.8 mmol/L (3.5-5.1); Sodium 138 mmol/L (136-145)
[2023-05-09] MEDS: Ipratropium/Albuterol 3 ML NEB NEB SCH ×3 (07:55→20:50)
[2023-05-09] MEDS: Carvedilol 6.25 MG TAB PO SCH ×2 (09:52→17:59)
[2023-05-09] MEDS: Insulin Glargine 30 UNITS/0.3 ML VIAL SC SCH (09:52)
[2023-05-09] MEDS: ALPRAZolam 0.5 MG TAB PO SCH ×2 (09:53→20:18)
[2023-05-09] MEDS: Apixaban 5 MG TAB PO SCH ×2 (09:53→20:15)
[2023-05-09] MEDS: Benzonatate 100 MG CAP PO SCH ×3 (09:53→20:16)
[2023-05-09] MEDS: predniSONE 50 MG TAB PO SCH (09:53)
[2023-05-09] MEDS: Ferrous Sulfate 325 MG TAB PO SCH ×2 (09:53→17:59)
[2023-05-09] MEDS: Isosorbide Mononitrate 30 MG ER.TAB PO SCH ×2 (09:54→20:16)
[2023-05-09] MEDS: hydrALAZINE 25 MG TAB PO SCH ×3 (09:54→20:16)
[2023-05-09] MEDS: busPIRone HCl 10 MG TAB PO SCH ×2 (09:54→20:16)
[2023-05-09] MEDS: HumaLOG 300 UNITS/3 ML VIAL SC PRN ×3 (15:07→20:16)
[2023-05-09] MEDS: Atorvastatin Calcium 20 MG TAB PO SCH (20:15)
[2023-05-09] MEDS: Montelukast Sodium 10 mg Tablet PO SCH (20:16)
[2023-05-10] MEDS: Ipratropium/Albuterol 3 ML NEB NEB SCH ×5 (00:30→23:43)
[2023-05-10 04:29] LABS: #Eosinphils 0.1 thou/uL (0.0-0.7); #Monocytes 0.7 thou/uL (0.11-0.59); #Neutrophils 11.8 thou/uL (1.40-6.50); %Basophils 0.2 % (0.0-1.0); %Eosinophils 0.3 % (0.0-10.0); %Lymphocytes 11.2 % (21.0-51.0); %Monocytes 4.7 % (0.0-10.0); %Neutrophils 81.1 % (42.0-75.0); Hematocrit 28.5 % (36.0-47.0); Hemoglobin 8.3 g/dL (12.0-16.0); Mean Corpuscular HGB CONC 29.1 g/dL (32.0-36.0); Mean Corpuscular Hemoglobin 23.1 pg (27.0-31.0); Mean Corpuscular Volume 79.2 fl (78.0-98.0); Mean Platelet Volume 11.9 fL (7.4-10.4); Platelet Count 475 10x3/uL (130-400); RBC Distribution Width 26.9 % (11.5-14.5); White Blood Cell (WBC) Count 14.6 10x3/uL (4.8-10.8)
[2023-05-10 04:56] LABS: BUN (Urea Nitrogen) 47 mg/dL (9.8-20.1); Calc. Creatinine Clearance 71 mL/min (70-130); Calcium 8.6 mg/dL (7.8-10.44); Estimated GFR 38; Glucose 249 mg/dL (80-115)
[2023-05-10 05:07] LABS: Chloride 94 mmol/L (98-107); Potassium 3.8 mmol/L (3.5-5.1); Sodium 138 mmol/L (136-145)
[2023-05-10 05:10] LABS: Anion Gap 15 mmol/L (10-20); Carbon Dioxide 33 mmol/L (23-31)
[2023-05-10] MEDS: Furosemide 40 MG/4 ML VIAL SLOW IVP SCH ×2 (05:37→13:27)
[2023-05-10] MEDS: HumaLOG 300 UNITS/3 ML VIAL SC PRN ×3 (06:43→21:01)
[2023-05-10 06:49] LABS: CellaVision Operator ID LAB.JMM; Elliptocytes SLIGHT = 2-5 cells HPF (0-1); Hypochromia MODERATE=16-30 cells HPF (0-5); Macrocytosis SLIGHT = 6-15 cells HPF (0-5); Platelet Adequacy Comment Platelets Normal; Polychromasia MODERATE = 3-4 cells HPF (0-2); RBC Morphology 2; Smudge Cells 5.9 %
[2023-05-10] MEDS: Carvedilol 6.25 MG TAB PO SCH ×2 (08:36→17:54)
[2023-05-10] MEDS: Insulin Glargine 30 UNITS/0.3 ML VIAL SC SCH (08:36)
[2023-05-10] MEDS: Ferrous Sulfate 325 MG TAB PO SCH ×2 (08:37→17:54)
[2023-05-10] MEDS: ALPRAZolam 0.5 MG TAB PO SCH ×2 (08:37→20:54)
[2023-05-10] MEDS: busPIRone HCl 10 MG TAB PO SCH ×2 (08:37→20:54)
[2023-05-10] MEDS: Benzonatate 100 MG CAP PO SCH ×3 (08:37→20:54)
[2023-05-10] MEDS: predniSONE 50 MG TAB PO SCH (08:37)
[2023-05-10] MEDS: Apixaban 5 MG TAB PO SCH ×2 (08:37→20:54)
[2023-05-10] MEDS: hydrALAZINE 25 MG TAB PO SCH ×3 (08:38→20:55)
[2023-05-10] MEDS: Isosorbide Mononitrate 30 MG ER.TAB PO SCH ×2 (08:38→20:54)
[2023-05-10] MEDS: LevoFLOXacin 750 mg/D5W 750 MG in Premix 1 BAG IVPB SCH (13:27)
[2023-05-10] MEDS: Labetalol HCl 100 MG/20 ML VIAL SLOW IVP PRN (18:06)
[2023-05-10] MEDS: Atorvastatin Calcium 20 MG TAB PO SCH (20:54)
[2023-05-10] MEDS: Montelukast Sodium 10 mg Tablet PO SCH (20:54)
[2023-05-11 04:38] LABS: #Eosinphils 0.1 thou/uL (0.0-0.7); #Monocytes 0.9 thou/uL (0.11-0.59); %Basophils 0.1 % (0.0-1.0); %Eosinophils 0.4 % (0.0-10.0); %Lymphocytes 13.2 % (21.0-51.0); %Monocytes 6.6 % (0.0-10.0); %Neutrophils 77.4 % (42.0-75.0); Hematocrit 29.7 % (36.0-47.0); Hemoglobin 8.5 g/dL (12.0-16.0); Mean Corpuscular HGB CONC 28.6 g/dL (32.0-36.0); Mean Corpuscular Hemoglobin 22.7 pg (27.0-31.0); Mean Corpuscular Volume 79.4 fl (78.0-98.0); Mean Platelet Volume 11.4 fL (7.4-10.4); Platelet Count 452 10x3/uL (130-400); Red Blood Cell (RBC) Count 3.74 mill/uL (4.20-5.40); White Blood Cell (WBC) Count 14.2 10x3/uL (4.8-10.8)
[2023-05-11 05:08] LABS: BUN (Urea Nitrogen) 48 mg/dL (9.8-20.1); Calc. Creatinine Clearance 74 mL/min (70-130); Calcium 8.6 mg/dL (7.8-10.44); Estimated GFR 40; Glucose 231 mg/dL (80-115)
[2023-05-11 05:17] LABS: Anion Gap 16 mmol/L (10-20); Carbon Dioxide 32 mmol/L (23-31); Chloride 94 mmol/L (98-107); Potassium 3.6 mmol/L (3.5-5.1); Sodium 138 mmol/L (136-145)
[2023-05-11 05:28] LABS: Anisocytosis SLIGHT = 6-15 cells HPF (0-5); CellaVision Operator ID lab.abc; Hypochromia SLIGHT = 6-15 cells HPF (0-5); Microcytosis SLIGHT = 6-15 cells HPF (0-5); Platelet Adequacy Comment Platelets Normal; Polychromasia SLIGHT = 2-3 cells HPF (0-2)
[2023-05-11] MEDS: Furosemide 40 MG/4 ML VIAL SLOW IVP SCH ×2 (05:42→13:31)
[2023-05-11] MEDS: HumaLOG 300 UNITS/3 ML VIAL SC PRN ×4 (05:46→20:41)
[2023-05-11] MEDS: busPIRone HCl 10 MG TAB PO SCH ×2 (07:45→20:42)
[2023-05-11] MEDS: ALPRAZolam 0.5 MG TAB PO SCH ×2 (07:45→20:41)
[2023-05-11] MEDS: Isosorbide Mononitrate 30 MG ER.TAB PO SCH ×2 (07:45→20:41)
[2023-05-11] MEDS: Benzonatate 100 MG CAP PO SCH ×3 (07:45→20:41)
[2023-05-11] MEDS: Ferrous Sulfate 325 MG TAB PO SCH ×2 (07:45→16:29)
[2023-05-11] MEDS: predniSONE 50 MG TAB PO SCH (07:45)
[2023-05-11] MEDS: Carvedilol 6.25 MG TAB PO SCH ×2 (07:45→16:23)
[2023-05-11] MEDS: Apixaban 5 MG TAB PO SCH ×2 (07:45→20:41)
[2023-05-11] MEDS: Insulin Glargine 30 UNITS/0.3 ML VIAL SC SCH (07:46)
[2023-05-11] MEDS: Ipratropium/Albuterol 3 ML NEB NEB SCH ×3 (07:51→19:26)
[2023-05-11] MEDS: hydrALAZINE 25 MG TAB PO SCH ×3 (09:36→20:41)
[2023-05-11] MEDS: LevoFLOXacin 750 mg/D5W 750 MG in Premix 1 BAG IVPB SCH (12:31)
[2023-05-11] MEDS: Montelukast Sodium 10 mg Tablet PO SCH (20:42)
[2023-05-11] MEDS: Atorvastatin Calcium 20 MG TAB PO SCH (20:42)
[2023-05-12] MEDS: Ipratropium/Albuterol 3 ML NEB NEB SCH ×3 (01:15→12:35)
[2023-05-12] MEDS: Furosemide 40 MG/4 ML VIAL SLOW IVP SCH ×2 (05:48→13:44)
[2023-05-12] MEDS: HumaLOG 300 UNITS/3 ML VIAL SC PRN ×3 (05:49→16:34)
[2023-05-12] MEDS: Carvedilol 6.25 MG TAB PO SCH ×2 (07:55→16:34)
[2023-05-12] MEDS: Insulin Glargine 30 UNITS/0.3 ML VIAL SC SCH (07:55)
[2023-05-12] MEDS: predniSONE 50 MG TAB PO SCH (08:10)
[2023-05-12] MEDS: Ferrous Sulfate 325 MG TAB PO SCH ×2 (08:10→16:34)
[2023-05-12] MEDS: ALPRAZolam 0.5 MG TAB PO SCH (09:21)
[2023-05-12] MEDS: Apixaban 5 MG TAB PO SCH (09:21)
[2023-05-12] MEDS: Isosorbide Mononitrate 30 MG ER.TAB PO SCH (09:25)
[2023-05-12] MEDS: Benzonatate 100 MG CAP PO SCH ×2 (09:25→15:08)
[2023-05-12] MEDS: busPIRone HCl 10 MG TAB PO SCH (09:25)
[2023-05-12] MEDS: hydrALAZINE 25 MG TAB PO SCH ×2 (09:25→15:08)
[2023-05-12] MEDS: LevoFLOXacin 750 mg/D5W 750 MG in Premix 1 BAG IVPB SCH (13:40)
[2023-05-12 15:11] VITALS: BP 169/65
[2023-05-12 15:44] VITALS: TEMP 98
[2023-05-13] MEDS ORDERED: Apixaban 5 MG TAB PO SCH (09:00)
[2023-05-15] MEDS ORDERED: Apixaban 5 MG TAB PO SCH (21:00)
== END 2023-05-12 17:50 | disposition home or self-care (01) | DRG 871 ==
LOC: ERS 09:42 → IMCU/EMU 13:35
PROVIDERS: ADMIT Internal Medicine; ATTEND Internal Medicine
PROC: 3E03329 Introduction of Other Anti-infective into Peripheral Vein, Percutaneous Approach (ICD-10-PCS; principal; 2023-05-04)
PROC: 4A033R1 Measurement of Arterial Saturation, Peripheral, Percutaneous Approach (ICD-10-PCS; 2023-05-04)
PROC: 5A09357 Assistance with Respiratory Ventilation, Less than 24 Consecutive Hours, Continuous Positive Airway Pressure (ICD-10-PCS; 2023-05-04)
PROC: 30233N1 Transfusion of Nonautologous Red Blood Cells into Peripheral Vein, Percutaneous Approach (ICD-10-PCS; 2023-05-07)
DX: A41.9 Sepsis, unspecified organism (principal); I50.33 Acute on chronic diastolic (congestive) heart failure; J96.21 Acute and chronic respiratory failure with hypoxia; J96.22 Acute and chronic respiratory failure with hypercapnia; J15.69 Pneumonia due to other Gram-negative bacteria; J44.1 Chronic obstructive pulmonary disease with (acute) exacerbation; I82.443 Acute embolism and thrombosis of tibial vein, bilateral; I82.432 Acute embolism and thrombosis of left popliteal vein; Z68.41 Body mass index [BMI] 40.0-44.9, adult; N39.0 Urinary tract infection, site not specified; Z16.24 Resistance to multiple antibiotics; J44.0 Chronic obstructive pulmonary disease with (acute) lower respiratory infection; G47.33 Obstructive sleep apnea (adult) (pediatric); I48.91 Unspecified atrial fibrillation; F41.9 Anxiety disorder, unspecified; I11.0 Hypertensive heart disease with heart failure; R91.8 Other nonspecific abnormal finding of lung field; E66.9 Obesity, unspecified; B96.20 Unspecified Escherichia coli [E. coli] as the cause of diseases classified elsewhere; D50.9 Iron deficiency anemia, unspecified; I16.0 Hypertensive urgency; E11.9 Type 2 diabetes mellitus without complications; Z98.890 Other specified postprocedural states; Z87.891 Personal history of nicotine dependence; Z91.041 Radiographic dye allergy status; Z91.040 Latex allergy status; Z11.52 Encounter for screening for COVID-19; Z88.5 Allergy status to narcotic agent; Z91.09 Other allergy status, other than to drugs and biological substances; Z79.51 Long term (current) use of inhaled steroids; Z79.4 Long term (current) use of insulin; Z79.899 Other long term (current) drug therapy
CPT/HCPCS: 36415; 36416; 36430; 71045; 78451; 80048; 80053; 81001; 82805; 83605; 83735; 83880; 84145; 84484; 85025; 85379; 85610; 85730; 86850; 86900; 86901; 87040; 87077; 87086; 87186; 93005; 93798; 93970; 94640; 94660; 94760; 96365; 96367; 96375; 97139; A9540; C9113; J0456; J0696; J1644; J1815; J1940; J1956; J2405; J2920; J3475; J3490; J7050; J7512; J7620; P9016

== ENCOUNTER 2024-05-07 09:52 | Inpatient (IN) | payer MEDICARE ==
[2024-05-07 11:06] LABS: INR-International Normal Ratio 1.2
[2024-05-07 11:08] LABS: Troponin I 0.034 ng/mL (< 0.028)
[2024-05-07 11:10] LABS: ALT (SGPT) 9 U/L (8-55); AST (SGOT) 9 U/L (5-34); Albumin 3.5 g/dL (3.4-4.8); Alkaline Phosphatase 82 U/L (40-110); Anion Gap 15 mmol/L (10-20); BUN (Urea Nitrogen) 32 mg/dL (9.8-20.1); Bilirubin, Total 0.3 mg/dL (0.2-1.2); Calc. Creatinine Clearance 0 mL/min (70-130); Calcium 8.9 mg/dL (7.8-10.44); Carbon Dioxide 26 mmol/L (23-31); Chloride 103 mmol/L (98-107); Estimated GFR 30; Globulin 3.1 g/dL (2.4-3.5); Glucose 135 mg/dL (80-115); Lipase 20 U/L (8-78); Magnesium 2.2 mg/dL (1.6-2.6); Potassium 3.8 mmol/L (3.5-5.1); Protein, Total 6.6 g/dL (5.8-8.1); Sodium 140 mmol/L (136-145)
[2024-05-07 11:26] LABS: Hematocrit 20.5 % (36.0-47.0); Hemoglobin 5.3 g/dL (12.0-16.0); Mean Corpuscular HGB CONC 25.9 g/dL (32.0-36.0); Mean Corpuscular Hemoglobin 19.4 pg (27.0-31.0); Mean Corpuscular Volume 75.1 fL (78.0-98.0); Mean Platelet Volume 12.8 fL (7.4-10.4); PTT 29.9 sec (22.9-36.1); Platelet Count 317 10x3/uL (130-400); RBC Distribution Width 17.7 % (11.5-14.5); Red Blood Cell (RBC) Count 2.73 mill/uL (4.20-5.40)
[2024-05-07] MEDS ORDERED: Pantoprazole 40 MG VIAL ONE (12:11)
[2024-05-07 12:36] LABS: Anisocytosis SLIGHT = 6-15 cells HPF (0-5); Band 2 % (5-11); Hypochromia SLIGHT = 6-15 cells HPF (0-5); Lymphocytes 7 % (21-51); Neutrophil 90 % (42-75); Platelet Adequacy Comment Platelets Normal; Polychromasia MODERATE = 3-4 cells HPF (0-2); Stomatocytes SLIGHT = 2-5 cells HPF (0-1); Tear Drops SLIGHT = 2-5 cells HPF (0-1)
[2024-05-07] MEDS ORDERED: Ondansetron ODT 4 MG TAB PO PRN (13:59)
[2024-05-07] MEDS ORDERED: Dextrose 50% Abboject 50 ML SYRINGE SLOW IVP PRN (14:48)
[2024-05-07] MEDS ORDERED: Dextrose 5% in Water 1,000 ML IV PRN (14:48)
[2024-05-07] MEDS ORDERED: Glucagon 1 MG/ML KIT IM PRN (14:48)
[2024-05-07 21:34] VITALS: BMI 40.3
[2024-05-08] MEDS: Insulin Glargine 30 UNITS/0.3 ML VIAL SC SCH (00:37)
[2024-05-08] MEDS: Pantoprazole 40 MG VIAL IVP SCH (00:37)
[2024-05-08] MEDS: Ferrous Sulfate 325 MG TAB PO SCH (00:38)
[2024-05-08] MEDS: hydrALAZINE 20 MG/ML VIAL SLOW IVP SCH (01:06)
[2024-05-08] MEDS: ALPRAZolam 0.5 MG TAB PO SCH (01:06)
[2024-05-08] MEDS: Ipratropium/Albuterol 3 ML NEB NEB PRN (02:55)
[2024-05-08 04:13] LABS: Mean Corpuscular Volume 78.7 fL (78.0-98.0)
[2024-05-08 04:14] LABS: #Basophils 0.07 10x3/uL (0.0-0.2); %Basophils 0.6 % (0.0-1.0); %Eosinophils 1.7 % (0.0-10.0); %Lymphocytes 16.7 % (21.0-51.0); %Monocytes 6.1 % (0.0-10.0); %Neutrophils 74.1 % (42.0-75.0); Hematocrit 27.3 % (36.0-47.0); Hemoglobin 8.1 g/dL (12.0-16.0); Mean Corpuscular HGB CONC 29.7 g/dL (32.0-36.0); Mean Corpuscular Hemoglobin 23.3 pg (27.0-31.0); Mean Platelet Volume 13.6 fL (7.4-10.4); Platelet Count 296 10x3/uL (130-400); RBC Distribution Width 17.9 % (11.5-14.5); Red Blood Cell (RBC) Count 3.47 mill/uL (4.20-5.40)
[2024-05-08 04:25] LABS: ALT (SGPT) 8 U/L (8-55); AST (SGOT) 10 U/L (5-34); Albumin 3.3 g/dL (3.4-4.8); Alkaline Phosphatase 76 U/L (40-110); Anion Gap 14 mmol/L (10-20); BUN (Urea Nitrogen) 28 mg/dL (9.8-20.1); Bilirubin, Total 1.2 mg/dL (0.2-1.2); Calc. Creatinine Clearance 64 mL/min (70-130); Calcium 8.4 mg/dL (7.8-10.44); Carbon Dioxide 24 mmol/L (23-31); Chloride 105 mmol/L (98-107); Estimated GFR 36; Globulin 2.8 g/dL (2.4-3.5); Glucose 129 mg/dL (80-115); Iron 50 ug/dL (50-170); Iron Binding Capacity, Total 373 mcg/dL (265-497); Potassium 3.6 mmol/L (3.5-5.1); Protein, Total 6.1 g/dL (5.8-8.1); Sodium 139 mmol/L (136-145)
[2024-05-08] MEDS: Ipratropium Bromide 2.5 ml Neb NEB SCH (08:29)
[2024-05-08] MEDS: Isosorbide Mononitrate 30 MG ER.TAB PO SCH ×2 (11:55→21:32)
[2024-05-08] MEDS: hydrALAZINE 25 MG TAB PO SCH ×2 (11:55→15:02)
[2024-05-08] MEDS: Lisinopril 5 MG TAB PO SCH ×2 (11:55→20:42)
[2024-05-08] MEDS: Mometasone 200 MCG/Formoterol 5 MCG 120 PUFF INHALER INH SCH (11:55)
[2024-05-08] MEDS: Carvedilol 6.25 MG TAB PO SCH ×2 (11:55→17:25)
[2024-05-08] MEDS: Furosemide 40 MG TAB PO SCH (15:02)
[2024-05-08] MEDS: Insulin Lispro 100 UNIT/ML 10 ML VIAL SC PRN (17:24)
[2024-05-08] MEDS: Albuterol 2.5 MG (3 mL) NEB NEB SCH (19:25)
[2024-05-08] MEDS: Montelukast Sodium 10 mg Tablet PO SCH (20:41)
[2024-05-08] MEDS: busPIRone HCl 10 MG TAB PO SCH (20:42)
[2024-05-08] MEDS: Atorvastatin Calcium 20 MG TAB PO SCH (20:42)
[2024-05-09 04:35] LABS: PTT 29.5 sec (22.9-36.1); Prothrombin Time 13.3 sec (12.0-14.7)
[2024-05-09 04:43] LABS: #Basophils 0.07 10x3/uL (0.0-0.2); %Basophils 0.7 % (0.0-1.0); %Eosinophils 3.3 % (0.0-10.0); %Lymphocytes 14.8 % (21.0-51.0); %Monocytes 6.5 % (0.0-10.0); %Neutrophils 74.1 % (42.0-75.0); Hematocrit 26.5 % (36.0-47.0); Hemoglobin 7.7 g/dL (12.0-16.0); Mean Corpuscular HGB CONC 29.1 g/dL (32.0-36.0); Mean Corpuscular Hemoglobin 23.8 pg (27.0-31.0); Mean Platelet Volume 13.3 fL (7.4-10.4); Platelet Count 284 10x3/uL (130-400); RBC Distribution Width 19.7 % (11.5-14.5); Red Blood Cell (RBC) Count 3.23 mill/uL (4.20-5.40)
[2024-05-09 05:01] LABS: Anion Gap 13 mmol/L (10-20); BUN (Urea Nitrogen) 30 mg/dL (9.8-20.1); Calc. Creatinine Clearance 57 mL/min (70-130); Carbon Dioxide 25 mmol/L (23-31); Chloride 105 mmol/L (98-107); Estimated GFR 32; Glucose 120 mg/dL (80-115); Sodium 139 mmol/L (136-145)
[2024-05-09] MEDS: Polyethylene Glycol 3350 17 GM Packet PO SCH (09:24)
[2024-05-10 06:00] LABS: #Basophils 0.05 10x3/uL (0.0-0.2); %Basophils 0.5 % (0.0-1.0); %Eosinophils 3.2 % (0.0-10.0); %Lymphocytes 11.9 % (21.0-51.0); %Neutrophils 77.8 % (42.0-75.0); Hematocrit 27.9 % (36.0-47.0); Mean Corpuscular HGB CONC 28.7 g/dL (32.0-36.0); Mean Corpuscular Hemoglobin 24.1 pg (27.0-31.0); Mean Platelet Volume 12.8 fL (7.4-10.4); Platelet Count 287 10x3/uL (130-400); RBC Distribution Width 22.2 % (11.5-14.5); Red Blood Cell (RBC) Count 3.32 mill/uL (4.20-5.40)
[2024-05-10 06:19] LABS: ALT (SGPT) 8 U/L (8-55); AST (SGOT) 9 U/L (5-34); Albumin 3.4 g/dL (3.4-4.8); Alkaline Phosphatase 79 U/L (40-110); Anion Gap 15 mmol/L (10-20); BUN (Urea Nitrogen) 35 mg/dL (9.8-20.1); Bilirubin, Total 0.5 mg/dL (0.2-1.2); Calc. Creatinine Clearance 56 mL/min (70-130); Calcium 8.4 mg/dL (7.8-10.44); Carbon Dioxide 26 mmol/L (23-31); Chloride 102 mmol/L (98-107); Estimated GFR 31; Globulin 2.8 g/dL (2.4-3.5); Glucose 129 mg/dL (80-115); Potassium 3.9 mmol/L (3.5-5.1); Protein, Total 6.2 g/dL (5.8-8.1); Sodium 139 mmol/L (136-145)
[2024-05-10 18:49] LABS: Magnesium 2.4 mg/dL (1.6-2.6)
[2024-05-11 08:47] LABS: Anion Gap 15 mmol/L (10-20); BUN (Urea Nitrogen) 39 mg/dL (9.8-20.1); Calc. Creatinine Clearance 52 mL/min (70-130); Calcium 8.5 mg/dL (7.8-10.44); Carbon Dioxide 28 mmol/L (23-31); Chloride 100 mmol/L (98-107); Estimated GFR 29; Glucose 96 mg/dL (80-115); Sodium 139 mmol/L (136-145)
[2024-05-12 04:55] LABS: #Basophils 0.05 10x3/uL (0.0-0.2); %Basophils 0.5 % (0.0-1.0); %Eosinophils 2.8 % (0.0-10.0); %Lymphocytes 14.4 % (21.0-51.0); %Monocytes 6.5 % (0.0-10.0); %Neutrophils 75.2 % (42.0-75.0); Hematocrit 26.8 % (36.0-47.0); Hemoglobin 7.8 g/dL (12.0-16.0); Mean Corpuscular HGB CONC 29.1 g/dL (32.0-36.0); Mean Corpuscular Hemoglobin 24.3 pg (27.0-31.0); Mean Corpuscular Volume 83.5 fL (78.0-98.0); Platelet Count 285 10x3/uL (130-400); RBC Distribution Width 23.4 % (11.5-14.5); Red Blood Cell (RBC) Count 3.21 mill/uL (4.20-5.40)
[2024-05-12 04:57] LABS: ALT (SGPT) 6 U/L (8-55); AST (SGOT) 8 U/L (5-34); Albumin 3.2 g/dL (3.4-4.8); Alkaline Phosphatase 73 U/L (40-110); Anion Gap 13 mmol/L (10-20); BUN (Urea Nitrogen) 39 mg/dL (9.8-20.1); Bilirubin, Total 0.5 mg/dL (0.2-1.2); Calc. Creatinine Clearance 56 mL/min (70-130); Calcium 8.1 mg/dL (7.8-10.44); Carbon Dioxide 28 mmol/L (23-31); Chloride 99 mmol/L (98-107); Estimated GFR 31; Globulin 2.6 g/dL (2.4-3.5); Glucose 95 mg/dL (80-115); Potassium 4.1 mmol/L (3.5-5.1); Protein, Total 5.8 g/dL (5.8-8.1); Sodium 136 mmol/L (136-145)
[2024-05-12 12:05] VITALS: TEMP 97.5
[2024-05-12 14:43] VITALS: BP 158/70
== END 2024-05-12 17:29 | disposition home or self-care (01) | DRG 812 ==
LOC: ERS 09:52 → ERHOLD 12:53 → 2NO 23:43
PROVIDERS: ADMIT Internal Medicine; ATTEND Internal Medicine
PROC: 30233N1 Transfusion of Nonautologous Red Blood Cells into Peripheral Vein, Percutaneous Approach (ICD-10-PCS; principal; 2024-05-07)
DX: D50.9 Iron deficiency anemia, unspecified (principal); I47.20 Ventricular tachycardia, unspecified; Z68.41 Body mass index [BMI] 40.0-44.9, adult; R91.8 Other nonspecific abnormal finding of lung field; J43.9 Emphysema, unspecified; G47.33 Obstructive sleep apnea (adult) (pediatric); Z99.81 Dependence on supplemental oxygen; E66.01 Morbid (severe) obesity due to excess calories; E11.9 Type 2 diabetes mellitus without complications; Z86.718 Personal history of other venous thrombosis and embolism; Z91.041 Radiographic dye allergy status; I11.0 Hypertensive heart disease with heart failure; I50.9 Heart failure, unspecified; F41.9 Anxiety disorder, unspecified; Z87.891 Personal history of nicotine dependence; I48.91 Unspecified atrial fibrillation; Z79.01 Long term (current) use of anticoagulants; Z79.899 Other long term (current) drug therapy; Z79.4 Long term (current) use of insulin; Z88.5 Allergy status to narcotic agent; Z91.040 Latex allergy status; Z79.52 Long term (current) use of systemic steroids
CPT/HCPCS: 36415; 36416; 36430; 71045; 71250; 74177; 80048; 80053; 83010; 83540; 83550; 83690; 83735; 83880; 84443; 84484; 85025; 85046; 85610; 85730; 86850; 86900; 86901; 93005; 93306; 94640; 96374; J0360; J1815; J2470; J7611; J7620; J7644; P9016